=== PATIENT | female | born 1980 | race Hispanic/Latino ===

== ENCOUNTER → 2018-10-26 | Day surgery (SDC) | payer BC ==
[~2018-10-26] MED LIST: DEXAMETHASONE SOD PHOS INJ 4 MG/ML VIAL ONE; FENTANYL CITRATE/PF 100MCG/2 ML INJ ONE; LIDOCAINE HCL 1% LOCAL INJ 20 ML VIAL ONE; LIDOCAINE HCL 2% LOCAL INJ 5 ML SDV VIAL INJ ONE; MEPERIDINE HCL INJ 25 MG/ML VIAL ONE; MIDAZOLAM HCL 2 MG/2 ML VIAL ONE; MULTIVITAMINS1 EAC7 PO; ONDANSETRON HCL INJ 2MG/ML 2ML 2 MG/ML VIAL ONE; PROPOFOL IV EMULSION 10 MG/ML 20 ML VIAL ONE; SEVOFLURANE INHAL SOLN 250 ML PEN BTL ONE; SINGULAIR4 MG PO; SYMBICORT PO
--- OUTSIDE RECORDS SUMMARY | 2018-10-26 08:47 | XMS REPORT ---
Author Author [facility] [place] Address Unknown Phone Unavailable Care Team Providers Care [employer] Name Role Phone Unavailable Unavailable Problems This patient has no known problems. Allergies, Adverse Reactions, Alerts This patient has no known allergies or adverse reactions. Medications This patient has no known medications. Results Test Description Test Time Test Comments Text Results Atomic Results Result Comments BREAST STEREO CORE BIOPSY RIGHT 2018-04-20 13:53:02 - BREAST STEREO CORE BIOPSY RIGHTSTEREOTACTIC GUIDED BIOPSY RIGHT BREAST USING VACUUM DEVICE WITH MARKING DEVICE INSERTED AND POST MAMMOGRAPHIC IMAGIN04/13/2018CLINICAL: Stereotactic Biopsy, right breast. A stereotactic guided biopsy was performed for the area of architectural distortion located in the right breast at 10 o'clock. This was described on the previous mammography report. The skin was prepped in the usual manner. Local anesthetic was administered to the access site. The abnormality was approached using an upright digital mammography unit. A 10 gauge biopsy needle was placed adjacent to the abnormality under computer guidance and confirmatory stereotactic mammography images were obtained to document needle placement. Once the needle was documented to be in the correct location, multiple specimens were obtained using the Civi[employer] system. A clip was inserted into the biopsy cavity. A skin closure strip was applied to the access site. Post procedure mammographic imaging was obtained. The specimens were sent to the laboratory for pathological analysis. IMPRESSION: STEREOTACTIC GUIDED BIOPSY BENIGN Stereotactic guided biopsy of the area of architectural distortion in the right breast at 10 o'clock was performed. Pathology indicates florid sclerosing adenosis. Pathology results are discordant with mammography findings. A surgical excision and a wire localization are recommended. Donna Bhatt M.D. dm/:04/20/2018 13:53:02 Entry: cp - 04/20/2018 14:22:29copy to: Patrick Mota M.D., ph: [phone], fax: [phone] Technologist: Isabella Powell , [facility]-FWletter sent: Surgical Consult Recommended BREAST STEREO CORE BIOPSY RIGHT 2018-04-20 13:53:02 - BREAST STEREO CORE BIOPSY RIGHTSTEREOTACTIC GUIDED BIOPSY RIGHT BREAST USING VACUUM DEVICE WITH MARKING DEVICE INSERTED AND POST MAMMOGRAPHIC IMAGIN04/13/2018CLINICAL: Stereotactic Biopsy, right breast. A stereotactic guided biopsy was performed for the area of architectural distortion located in the right breast at 10 o'clock. This was described on the previous mammography report. The skin was prepped in the usual manner. Local anesthetic was administered to the access site. The abnormality was approached using an upright digital mammography unit. A 10 gauge biopsy needle was placed adjacent to the abnormality under computer guidance and confirmatory stereotactic mammography images were obtained to document needle placement. Once the needle was documented to be in the correct location, multiple specimens were obtained using the Civi[employer] system. A clip was inserted into the biopsy cavity. A skin closure strip was applied to the access site. Post procedure mammographic imaging was obtained. The specimens were sent to the laboratory for pathological analysis. IMPRESSION: STEREOTACTIC GUIDED BIOPSY BENIGN Stereotactic guided biopsy of the area of architectural distortion in the right breast at 10 o'clock was performed. Pathology indicates florid sclerosing adenosis. Pathology results are discordant with mammography findings. A surgical excision and a wire localization are recommended. Donna Bhatt M.D. dm/:04/20/2018 13:53:02 Entry: - 04/20/2018 14:22:29copy to: Patrick Mota M.D., ph: [phone], fax: [phone] Technologist: Isabella Powell , [facility]-FWletter sent: Surgical Consult Recommended BREAST ULTRASOUND CORE BIOPSY LEFT 2018-04-18 09:24:31 - BREAST ULTRASOUND CORE BIOPSY LEFTULTRASOUND GUIDED BIOPSY LEFT BREAST WITH MARKING DEVICE INSERTED: 04/11/2018CLINICAL: Ultrasound biopsy, left breast. Comparison is made to exams dated 03/23/2018 ultrasound, 03/23/2018 mammogram, and 03/02/2018 mammogram - [facility]-. An ultrasound guided biopsy using real- time ultrasound was performed for the 1.5 cm mass located in the left breast at 1 o'clock, 7 cm from the nipple. The skin was prepped in the usual manner. Local anesthetic was administered to the access site. A 14 gauge biopsy needle was placed adjacent to the abnormality under ultrasound guidance. Once the needle was documented to be in the correct location, multiple specimens were obtained using a BARD biopsy device. A clip was inserted into the biopsy cavity. The specimens were sent to the laboratory for pathological analysis. IMPRESSION: ULTRASOUND GUIDED BIOPSY BENIGN Ultrasound guided biopsy of the 1.5 cm mass in the left breast at 1 o'clock, 7 cm from the nipple, was successful with no apparent post procedure complications. PATHOLOGY INDICATES:Benign fibrocystic changes. RECOMMENDATION:A follow-up mammogram and an ultrasound in 6 months is recommended to demonstrate stability. Donna Bhatt M.D. dm/:04/18/2018 09:24:31 copy to: Patrick Mota M.D., ph: [phone], fax: [phone] Technologist: Sandra VASQUES, [facility] BREAST ULTRASOUND CORE BIOPSY LEFT 2018-04-18 09:24:31 - BREAST ULTRASOUND CORE BIOPSY LEFTULTRASOUND GUIDED BIOPSY LEFT BREAST WITH MARKING DEVICE INSERTED: 04/11/2018CLINICAL: Ultrasound biopsy, left breast. Comparison is made to exams dated 03/23/2018 ultrasound, 03/23/2018 mammogram, and 03/02/2018 mammogram - [facility]. An ultrasound guided biopsy using real- time ultrasound was performed for the 1.5 cm mass located in the left breast at 1 o'clock, 7 cm from the nipple. The skin was prepped in the usual manner. Local anesthetic was administered to the access site. A 14 gauge biopsy needle was placed adjacent to the abnormality under ultrasound guidance. Once the needle was documented to be in the correct location, multiple specimens were obtained using a BARD biopsy device. A clip was inserted into the biopsy cavity. The specimens were sent to the laboratory for pathological analysis. IMPRESSION: ULTRASOUND GUIDED BIOPSY BENIGN Ultrasound guided biopsy of the 1.5 cm mass in the left breast at 1 o'clock, 7 cm from the nipple, was successful with no apparent post procedure complications. PATHOLOGY INDICATES:Benign fibrocystic changes. RECOMMENDATION:A follow-up mammogram and an ultrasound in 6 months is recommended to demonstrate stability. Donna Bhatt M.D. dm/:04/18/2018 09:24:31 Entry: - 04/26/2018 07:59:48copy to: Patrick Mota M.D., ph: [phone], fax: [phone] Technologist: Sandra VASQUES, [facility]-letter sent: Benign Biopsy DIAG MAMM LEFT CAD DIGITAL 2018-04-11 09:36:20 - DIAG MAMM LEFT CAD DIGITALUNILATERAL LEFT DIGITAL DIAGNOSTIC MAMMOGRAM WITH CAD - LEFT BREAST POST-PROCEDURE IMAGING FOR MARKER PLACEMENT: 04/11/2018CLINICAL: Post clip placement. [facility] images were evaluated by either a [employer] M-Vu or a [employer] CAD (computer aided detection system). Comparison is made to exam [facility] The tissue of the left breast is heterogeneously dense. This may lower the sensitivity of mammography. There is a marker clip in the appropriate position in the left breast at 1 o'clock. This marker clip placement is at the biopsy site. IMPRESSION: POST PROCEDURE IMAGING FOR MARKER PLACEMENTThere was a successful marker clip placement in the left breast. Donna Bhatt M.D. dm/:04/11/2018 09:36:20 copy to: Patrick Mota M.D., ph: [phone], fax: [phone] Technologist: Jocelin VASQUES, [facility]ADS: Post-procedure mammogram for marker placement DIAG MAMM RIGHT MARIANNE CAD DIGITAL 2018-03-23 14:32:47 - DIAG MAMM RIGHT MARIANNE CAD DIGITALUNILATERAL RIGHT DIGITAL DIAGNOSTIC MAMMOGRAM 3D/2D WITH CAD: 03/23/2018CLINICAL: Recall from screening: Architectural distortion right breast. Digital breast tomosynthesis was performed in addition to routine CC and MLO views. Current mammographic images were evaluated by either a [employer] M-Vu or a [employer] CAD (computer aided detection system). Comparison is made to exam dated [facility]02/2018 [facility]. The tissue of the right breast is extremely dense, which lowers the sensitivity of mammography. An area of architectural distortion in the right upper outer quadrant at 11 o'clock, approximately 7 cm from the nipple, persists on spot compression tomosynthesis views.INCOMPLETE ASSESSMENT: ADDITIONAL IMAGING EVALUATION RECOMMENDEDPersistent area of architectural distortion in the right upper outer quadrant, posterior depth. Targeted and bilateral survey ultrasound to follow.- BREAST ULTRASOUND BILATERALULTRASOUND OF RIGHT BREAST: 03/23/2018Comparison is made to exam dated 03/02/2018 mammogram - [facility]-. Color flow and real-time ultrasound of both breasts were performed. Lemus scale images of the real-time examination were reviewed. The breast tissue has heterogenous background echotexture. Questionable area of distortion is noted in the right breast on sonogram at 9 o'clock when correlated with the mammographic area of architectural distortion; otherwise, no suspicious sonographic abnormality of the survey right breast ultrasound. Survey left breast ultrasound demonstrates scattered simple cysts, however there is a complex solid and cystic mass at 1 o'clock, 7 cm from the nipple, that measures 15 x 9 x 6 mm. Characteristics include oval shape, circumscribed margins, mixed hypo-and anechoic echogenicity, parallel orientation and no internal vascularity. The rest of the survey ultrasound is negative. No axillary lymphadenopathy was seen.IMPRESSION: SUSPICIOUS OF MALIGNANCY - FOLLOW-UP AHMET MMENDED1. Persistent architectural distortion the right upper outer quadrant, posterior depth, without definite sonographic correlate. BI-RADS 4C. Tomosynthesis guided core biopsy is recommended at this time.2. Mixed solid and cystic mass at 1 o'clock, 7 cm from the nipple. BI-RADS 4A. Ultrasound-guided core biopsy is recommended at this time.Results were discussed with the patient.Chucho Fulton M.D. ss/:03/23/2018 14:32:47 copy to: Patrick Mota M.D., ph: [phone], fax: [phone] Technologist: Jocelin VASQUES, [facility]-letter sent: BIRADS 4/5 Biopsy Mammogram BI-RADS: 0 Indeterminate Ultrasound BI-RADS: 4a Suspicious abnormality - low suspicion for malignancy BREAST ULTRASOUND BILATERAL 2018-03-23 14:32:47 - DIAG MAMM RIGHT MARIANNE CAD DIGITALUNILATERAL RIGHT DIGITAL DIAGNOSTIC MAMMOGRAM 3D/2D WITH CAD: 03/23/2018CLINICAL: Recall from screening: Architectural distortion right breast. Digital breast tomosynthesis was performed in addition to routine CC and MLO views. Current mammographic images were evaluated by either a [employer] M-Vu or a [employer] CAD (computer aided detection system). Comparison is made to exam dated 03/02/2018 mammogram - [facility]-. The tissue of the right breast is extremely dense, which lowers the sensitivity of mammography. An area of architectural distortion in the right upper outer quadrant at 11 o'clock, approximately 7 cm from the nipple, persists on spot compression tomosynthesis views.INCOMPLETE ASSESSMENT: ADDITIONAL IMAGING EVALUATION RECOMMENDEDPersistent area of architectural distortion in the right upper outer quadrant, posterior depth. Targeted and bilateral survey ultrasound to follow.- BREAST ULTRASOUND BILATERALULTRASOUND OF RIGHT BREAST: 03/23/2018Comparison is made to exam dated 03/02/2018 mammogram - [facility]-. Color flow and real-time ultrasound of both breasts were performed. Lemus scale images of the real-time examination were reviewed. The breast tissue has heterogenous background echotexture. Questionable area of distortion is noted in the right breast on sonogram at 9 o'clock when correlated with the mammographic area of architectural distortion; otherwise, no suspicious sonographic abnormality of the survey right breast ultrasound. Survey left breast ultrasound demonstrates scattered simple cysts, however there is a complex solid and cystic mass at 1 o'clock, 7 cm from the nipple, that measures 15 x 9 x 6 mm. Characteristics include oval shape, circumscribed margins, mixed hypo-and anechoic echogenicity, parallel orientation and no internal vascularity. The rest of the survey ultrasound is negative. No axillary lymphadenopathy was seen.IMPRESSION: SUSPICIOUS OF MALIGNANCY - FOLLOW-UP AHMET MMENDED1. Persistent architectural distortion the right upper outer quadrant, posterior depth, without definite sonographic correlate. BI-RADS 4C. Tomosynthesis guided core biopsy is recommended at this time.2. Mixed solid and cystic mass at 1 o'clock, 7 cm from the nipple. BI-RADS 4A. Ultrasound-guided core biopsy is recommended at this time.Results were discussed with the patient.Chucho Fulton M.D. ss/:03/23/2018 14:32:47 copy to: Patrick Mota M.D., ph: [phone], fax: [phone] Technologist: Jocelin VASQUES, [facility]-letter sent: BIRADS 4/5 Biopsy Mammogram BI-RADS: 0 Indeterminate Ultrasound BI-RADS: 4a Suspicious abnormality - low suspicion for malignancy DIAG MAMM RIGHT MARIANNE CAD DIGITAL 2018-03-23 14:32:00 - DIAG MAMM RIGHT MARIANNE CAD DIGITALUNILATERAL RIGHT DIGITAL DIAGNOSTIC MAMMOGRAM 3D/2D WITH CAD: 03/23/2018CLINICAL: Recall from screening: Architectural distortion right breast. Digital breast tomosynthesis was performed in addition to routine CC and MLO views. Current mammographic images were evaluated by either a [employer] M-Vu or a [employer]er CAD (computer aided detection system). Comparison is made to exam dated 03/02/2018 mammogram - [facility]-. The tissue of the right breast is extremely dense, which lowers the sensitivity of mammography. An area of architectural distortion in the right upper outer quadrant at 11 o'clock, approximately 7 cm from the nipple, persists on spot compression tomosynthesis views.IMPRESSION: INCOMPLETE ASSESSMENT: ADDITIONAL IMAGING EVALUATION RECOMMENDEDPersistent area of architectural distortion in the right upper outer quadrant, posterior depth. Targeted and bilateral survey ultrasound to follow.Chucho Fulton M.D. ss/:03/23/2018 14:32:00 Entry: - 03/27/2018 11:15:19copy to: Patrick Mota M.D., ph: [phone], fax: [phone] Technologist: Jocelin VASQUES, [facility] BI-RADS: 0 Indeterminate BREAST ULTRASOUND BILATERAL 2018-03-23 14:32:00 - BREAST ULTRASOUND BILATERALULTRASOUND OF RIGHT BREAST: 03/23/2018Comparison is made to exam dated 03/02/2018 mammogram - [facility]-. Color flow and real-time ultrasound of both sonny sts were performed. Lemus scale images of the real-time examination were reviewed. The breast tissue has heterogenous background echotexture. Questionable area of distortion is noted in the right breast on sonogram at 9 o'clock when correlated with the mammographic area of architectural distortion; otherwise, no suspicious sonographic abnormality of the survey right breast ultrasound. Survey left breast ultrasound demonstrates scattered simple cysts, however there is a complex solid and cystic mass at 1 o'clock, 7 cm from the nipple, that measures 15 x 9 x 6 mm. Characteristics include oval shape, circumscribed margins, mixed hypo-and anechoic echogenicity, parallel orientation and no internal vascularity. The rest of the survey ultrasound is negative. No axillary lymphadenopathy was seen.IMPRESSION: SUSPICIOUS OF MALIGNANCY - FOLLOW-UP RECOMMENDED1. Persistent architectural distortion the right upper outer quadrant, posterior depth, without definite sonographic correlate. BI-RADS 4C. Tomosynthesis guided core biopsy is recommended at this time.2. Mixed solid and cystic mass at 1 o'clock, 7 cm from the nipple. BI- RADS 4A. Ultrasound-guided core biopsy is recommended at this time.Results were discussed with the patient.Chucho Fulton M.D. ss/:03/23/2018 14:32:00 Entry: - 03/27/2018 11:16:29copy to: Patrick Mota M.D., ph: [phone], fax: [phone] Technologist: Jocelin VASQUES, [facility]-letter sent: BIRADS 4/5 Biopsy Ultrasound BI-RADS: 4a Suspicious abnormality - low suspicion for malignancy BREAST ULTRASOUND BILATERAL 2018-03-23 14:32:00 - BREAST ULTRASOUND BILATERALULTRASOUND OF BOTH BREASTS: 03/23/2018Comparison is made to exam dated 03/02/2018 mammogram - [facility]-. Color flow and real-time ultrasound of both sonny sts were performed. Lemus scale images of the real-time examination were reviewed. The breast tissue has heterogenous background echotexture. Questionable area of distortion is noted in the right breast on sonogram at 9 o'clock when correlated with the mammographic area of architectural distortion; otherwise, no suspicious sonographic abnormality of the survey right breast ultrasound. Survey left breast ultrasound demonstrates scattered simple cysts, however there is a complex solid and cystic mass at 1 o'clock, 7 cm from the nipple, that measures 15 x 9 x 6 mm. Characteristics include oval shape, circumscribed margins, mixed hypo-and anechoic echogenicity, parallel orientation and no internal vascularity. The rest of the survey ultrasound is negative. No axillary lymphadenopathy was seen.IMPRESSION: SUSPICIOUS OF MALIGNANCY - FOLLOW-UP RECOMMENDED1. Persistent architectural distortion the right upper outer quadrant, posterior depth, without definite sonographic correlate. BI-RADS 4C. Tomosynthesis guided core biopsy is recommended at this time.2. Mixed solid and cystic mass at 1 o'clock, 7 cm from the nipple. BI- RADS 4A. Ultrasound-guided core biopsy is recommended at this time.Results were discussed with the patient.Chucho Fulton M.D. ss/:03/23/2018 14:32:00 Entry: - 05/30/2018 15:49:06copy to: Patrick Mota M.D., ph: [phone], fax: [phone] Technologist: Jocelin VASQUES, [facility]-FWletter sent: BIRADS 4/5 Biopsy Ultrasound BI-RADS: 4a Suspicious abnormality - low suspicion for malignancy SCR MAMM BILATERAL MARIANNE CAD DIGITAL 2018-03-03 08:12:41 - SCR MAMM BILATERAL MARIANNE CAD DIGITALBILATERAL FIRST EVER DIGITAL SCREENING MAMMOGRAM 3D/2D WITH CAD: 03/02/2018CLINICAL: Asymptomatic. Digital breast tomosynthesis was performed in addition to routine CC and MLO views. Current mammographic images were evaluated by either a [employer] M-Vu or a [employer] CAD (computer aided detection system). No prior exams were available for comparison. The tissue of both breasts is heterogeneously dense, which lowers the sensitivity of mammography. Area of architectural distortion in the right upper outer quadrant, approximately 8 cm from the nipple. Multiple oval circumscribed low- density benign-appearing masses in the left breast CC slice #46 and slice #51, middle depth.IMPRESSION: INCOMPLETE ASSESSMENT: ADDITIONAL IMAGING EVALUATION RECOMMENDEDArea of architectural distortion in the right upper outer quadrant, posterior depth, and multiple oval circumscribed low-density masses in the left breast. Spot compression tomosynthesis of the right breast and bilateral survey ultrasound are recommended at this time.Chucho Fulton M.D. ss/:03/03/2018 08:12:41 copy to: Patrick Mota M.D., ph: [phone], fax: [phone] Technologist: Earnestine VASQUES, [facility]- FWletter sent: Additional Imaging Mammogram BI-RADS: 0 Indeterminate
--- NOTE | 2018-10-26 14:51 | Operative Report ---
DATE OF PROCEDURE: 10/26/2018 SURGEON: Rasta Rocha MD PREOPERATIVE DIAGNOSIS: Right breast mass. POSTOPERATIVE DIAGNOSIS: Right breast mass. OPERATIONS PERFORMED: Right partial mastectomy with preoperative ultrasound-guided needle localization and intraoperative specimen mammography. CATERING SERVER: TIM Prescott. ANESTHESIA: General. COMPLICATIONS: None. ESTIMATED BLOOD LOSS: Minimal. DESCRIPTION OF PROCEDURE: With the patient lying in bed in the supine position under good general anesthesia, the right breast was prepped with Betadine solution and draped in the usual manner. The patient had undergone a needle localization preoperatively of the mass in the upper outer quadrant of the right breast, the area of the penetration of the wire was then infiltrated with 0.25% Marcaine solution. The incision was made over the wire entrance and carried down through the subcutaneous tissue and followed to the area of the breast tissue. The area of the breast tissue with the mass was extremely thick and then hard breast tissue, which had to actually be cut with knife. We went ahead and slowly and carefully developed the area in question all the way around and totally and completely removed it. The specimen was then marked and sent for pathological examination and specimen mammography confirmed that the area in question had been removed. The whole area was then thoroughly irrigated. Perfect hemostasis was ascertained. The breast tissue was then reapproximated with interrupted sutures of 2-0 chromic and the skin was closed with subcuticular 5-0 Vicryl. Benzoin and Steri-Strips were applied. The sponge, lap, and needle counts were correct. The patient tolerated the procedure well and returned to the recovery room in stable condition. Rasta Rocha MD JLR/MODL /[id number]
[2018-10-26 15:50] VITALS: BP 110/71
--- NOTE | 2018-10-27 16:38 | Diagnostic Imaging Report ---
#[id number] - [id number] SPECIMEN: 10/26/2018 CLINICAL: Digital mammography was performed to assess the lumpectomy specimen, which shows complete removal of the area of clinical interest inclusive of the localized biopsy clip. Correlation is made to exam dated: 10/26/2018 localization - [facility]. IMPRESSION: SPECIMEN Follow-up with ACR/ACS guidelines. ASHWIN garrett/ivannarad:10/27/2018 09:33:38 Assistance Representative: Marce FINNEY(R)(M), [facility]
--- NOTE | 2018-10-27 16:38 | Diagnostic Imaging Report ---
THIS REPORT HAS BEEN AMENDED. #[id number] - [id number] DIGITAL MAMMOGRAPHY GUIDED WIRE LOCALIZATION RIGHT BREAST WITH POST DIGITAL MAMMOGRAPHIC IMAGIN10/26/2018 PROCEDURE DESCRIPTION: The patient had a stereotactic biopsy of the right breast, at 10:00. Mammograms show a biopsy marker clip at the lesion location. Preoperative localization was requested. Written informed written consent was obtained from the patient, and a formal time out was taken to confirm patient identity and procedure to be perfomed. Using standard full barrier sterile technique, 1% lidocaine local anesthesia, and mammographic guidance, the biopsy clip was preoperatively localized with a hookwire. Final CC and LM mammograms were obtained to document wire location. A sterile bandage was placed over the wire and the patient was transferred from mammography with no immediate complications noted. Correlation is made to exams dated: 04/13/2018 stereotactic biopsy and 03/23/2018 mammogram - [facility]. A wire localization using digital mammography guidance was performed for the marker clip located in the right breast at 10 o'clock middle depth. The skin was prepped in the usual manner. Local anesthetic was administered to the access site. The localization was approached from the lateral aspect. A wire was inserted into the targeted area under digital mammography guidance. Post placement digital mammographic imaging was obtained. IMPRESSION: WIRE LOCALIZATION Wire localization for the marker clip in the right breast at 10 o'clock middle depth was successful. Follow-up with ACR/ACS guidelines. ASHWIN garrett/enzo:10/27/2018 09:25:28 Insurance Coordinator: Marce HOUSTON)(Darcie), [facility] [id number] AMENDMENT: 11/30/2018 ASHWIN ADAIR M.D. Final pathology analysis shows intraductal hyperplasia, radial scar and florid sclerosing lesion. Negative for malignancy.
== END | disposition home or self-care (01) ==
LOC: OR 08:45
PROVIDERS: ATTEND Surgery
DX: N60.91 Unspecified benign mammary dysplasia of right breast (principal)
CPT/HCPCS: 19281; 19301; 76098; 81025; 88307; J1100; J2001 ×2; J2175; J2250; J2405; J2704; J3010